=== PATIENT | female | born 1990 | race African-American/Black ===

== ENCOUNTER 2025-05-13 14:59 | Emergency (ER) | payer OTHER ==
[~2025-05-13] VITALS: Ht 175.3 cm; Wt 139.3 kg
[2025-05-13 16:01] VITALS: PULSE 89; RESP 16; TEMP 98.4; O2SAT 100
[2025-05-13] MEDS: TETRACAINE HCL 0.5% OPTH SOLN 4 ML BTL OP ONE (17:09)
[2025-05-13] MEDS: FLUORESCEIN SOD(OPTH) 1 MG STRP OP ONE (17:09)
[2025-05-13] MEDS: EYE IRRIGATION (OPTH) 120 ML BTL OP ONE (17:10)
[2025-05-13] MEDS: ERYTHROMYCIN (OPTH) 3.5 GM OINT OP ONE (17:10)
[2025-05-13] MEDS ORDERED: HYDROCODON-ACE1 EA11 PO (18:30)
== END 2025-05-13 18:30 | disposition home or self-care (01) ==
LOC: ER 16:21
DX: S05.01XA Injury of conjunctiva and corneal abrasion without foreign body, right eye, initial encounter (principal); W20.8XXA Other cause of strike by thrown, projected or falling object, initial encounter; Y93.9 Activity, unspecified; Y92.9 Unspecified place or not applicable; Y99.0 Civilian activity done for income or pay
CPT/HCPCS: 99283